=== PATIENT | male | born 1965 | race Asian ===

== ENCOUNTER 2023-09-05 06:13 | Emergency (ER) | payer OTHER ==
[2023-09-05 06:24] VITALS: BP 149/92; PULSE 86; RESP 18; TEMP 98.5; BMI 29.2
== END 2023-09-05 08:30 | disposition left against medical advice (07) ==
LOC: JER 06:13
DX: R10.9 Unspecified abdominal pain (principal); K59.00 Constipation, unspecified; R33.9 Retention of urine, unspecified
CPT/HCPCS: 99281-25